=== PATIENT | male | born 1970 | race Caucasian/White ===

== ENCOUNTER 2018-06-18 14:13 | Emergency (ER) | payer MEDICAID ==
[~2018-06-18] VITALS: Ht 185.4 cm; Wt 95.5 kg
[2018-06-18 14:22] VITALS: BP 141/78; Ht 185.4 cm; Wt 95.5 kg
[2018-06-18] MEDS ORDERED: CLEOCIN HCL300 MG PO (18:15)
[2018-06-18] MEDS ORDERED: IBUPROFEN800 MG PO (18:15)
== END 2018-06-18 18:50 | disposition home or self-care (01) ==
LOC: D.ER 14:13
DX: J34.89 Other specified disorders of nose and nasal sinuses (principal); S02.5XXA Fracture of tooth (traumatic), initial encounter for closed fracture; X58.XXXA Exposure to other specified factors, initial encounter; Y93.89 Activity, other specified; Y92.019 Unspecified place in single-family (private) house as the place of occurrence of the external cause; J34.2 Deviated nasal septum; F17.200 Nicotine dependence, unspecified, uncomplicated; Z86.73 Personal history of transient ischemic attack (TIA), and cerebral infarction without residual deficits; J44.9 Chronic obstructive pulmonary disease, unspecified